=== PATIENT | male | born 1960 | race Caucasian/White ===

== ENCOUNTER 2020-12-25 09:51 | Emergency (ER) | payer OTHER, BC | END 2020-12-25 12:35 | disposition home or self-care (01) | LOC: ER1 09:51 | DX: M25.562 Pain in left knee (principal); M54.2 Cervicalgia; M25.532 Pain in left wrist; I10 Essential (primary) hypertension; V59.49XA Driver of pick-up truck or van injured in collision with other motor vehicles in traffic accident, initial encounter; Y92.410 Unspecified street and highway as the place of occurrence of the external cause | CPT/HCPCS: 73110; 73562; 99283; J1885 ==